=== PATIENT | female | born 1995 | race Caucasian/White ===

== ENCOUNTER → 2017-06-20 14:14 | Outpatient (CLI) | payer OTHER, SELFPAY ==
[2017-06-20 15:47] LABS: Hematocrit 27.6 % (37-47); Hemoglobin 8.7 g/dl (12.0-15.0); Mean Corp Hgb Conc 31.5 g/gl (32-36); Mean Corpuscular Hgb 28.8 pg (27.0-32.0); Mean Corpuscular Volume 91.4 fL (81-99); Mean Platelet Vol. 8.8 fl (6.2-12.0); Platelet Count 305 K/mm3 (150-450); RBC Distribution Width CV 13.6 % (11.6-14.6); RBC Distribution Width SD 44.9 fl (35.1-43.9); Red Blood Count 3.02 M/mm3 (4.2-5.4); White Blood Count 11.2 K/mm3 (4.4-11.0)
[2017-06-20 15:51] LABS: Scan Indicated on CBC? Y/N NO
[2017-06-20 15:52] LABS: Glucose Challenge Gest 1H 50g 127 mg/dL (70-140)
[2017-06-21 11:46] LABS: Ferritin 6 ng/mL (8-252); Iron 32 ug/dL (50-170); Iron Binding Capacity,Total 699 ug/dL (250-450); PERCENT IRON SATURATION 4.6 % (15.0-55.0)
== END ==
PROVIDERS: Visit Provider Obstetrics & Gynecology
DX: Z34.83 Encounter for supervision of other normal pregnancy, third trimester (principal); O99.013 Anemia complicating pregnancy, third trimester; D64.9 Anemia, unspecified; Z3A.00 Weeks of gestation of pregnancy not specified
CPT/HCPCS: 36415; 82728; 82950; 83540; 83550; 85027

== ENCOUNTER 2017-07-14 17:55 | Outpatient (CLI) | payer OTHER, SELFPAY ==
[2017-07-14 18:25] VITALS: BMI 28.3
--- NOTE | 2017-07-20 09:39 | OB.TRI.NOTE ---
History of Present Illness Date of Service: 07/14/17 Was patient seen by the physician?: Yes Reason For Visit: NON-STRESS TEST Final DEANDRE: 09/07/17 Final DEANDRE Source: US <20 weeks Gestational age: 32 Weeks and 6 Days History of Present Illness: 22yo with twin gestation for scheduled NST. Home Medications Medication Instructions Recorded Ferrous Sulfate [Iron] 325 mg PO BID 07/14/17 Prenatabs FA 1 tab PO DAILY 07/14/17 Allergies No Known Allergies Allergy (Verified 07/14/17 18:27) Physical Exam Abdomen: - - US performed to confirm separate FHRs given similarities in tracing NST - FHR Rate Baby A Baseline: 135 Variability:: Moderate Accelerations:: 15 x 15 Decelerations:: None NST Reactive:: Yes FHR Category:: Category I Uterine Activity:: 2/10 min - FHR Rate Baby B Baseline: 135 Variability:: Moderate Accelerations:: 15 x 15 Decelerations:: None NST Reactive:: Yes FHR Category:: Category I Uterine Activity:: 2/10 min Impression/Plan Reactive NST with Cat I FHR Supervision of dichorionic diamnionic twin gestation -d/c home
== END 2017-07-14 19:15 | disposition home or self-care (01) ==
LOC: WPOUT 18:08 → WP 18:13
PROVIDERS: Visit Provider Obstetrics & Gynecology
DX: O30.043 Twin pregnancy, dichorionic/diamniotic, third trimester (principal); Z3A.32 32 weeks gestation of pregnancy
CPT/HCPCS: 59025

== ENCOUNTER 2017-07-18 15:45 | Outpatient (CLI) | payer OTHER, SELFPAY ==
[2017-07-18 16:08] VITALS: BMI 28.9
--- NOTE | 2017-07-19 20:19 | OB.TRI.NOTE ---
History of Present Illness Date of Service: 07/18/17 Was patient seen by the physician?: Yes Reason For Visit: NST Date of Service: 07/18/17 Final DEANDRE: 09/07/17 Gestational age: 32 Weeks and 5 Days Home Medications Medication Instructions Recorded Ferrous Sulfate [Iron] 325 mg PO BID 07/14/17 Prenatabs FA 1 tab PO DAILY 07/14/17 Allergies No Known Allergies Allergy (Verified 07/14/17 18:27) - Pertinent Past Medical History Pertinent Past Medical History: 22 yo female at 32 5/6 wk with twin IUP Concordant growth, both male and with normal AFIs. Both babies approx 5# to 5# 3 oz . Seen in ofc and sent over for twin NST Physical Exam General: Alert, Oriented x3, Cooperative, No apparent distress NST - FHR Rate Baby A Baseline: 130-140s with accels to 150s Unable to trace both babies at same time Variability:: Moderate Accelerations:: 15 x 15 Decelerations:: None NST Reactive:: Yes, Appropriate for gestational age Uterine Activity:: No UCs noted. Impression/Plan 32 5/6 wk twin IUP for NST Concordant growth and KIET wnl on both. Sono just done in office earlier in day Monitored for over 1 hr and unable to trace both babies at same time, even with holding monitors. Home. RTO as planned NST q 3-4 days.
== END 2017-07-18 17:05 | disposition home or self-care (01) ==
LOC: WPOUT 15:51 → WP 15:51
PROVIDERS: Visit Provider Obstetrics & Gynecology
DX: Z34.83 Encounter for supervision of other normal pregnancy, third trimester (principal); Z3A.32 32 weeks gestation of pregnancy
CPT/HCPCS: 59025; 99218; G0378

== ENCOUNTER 2017-07-22 15:55 | Outpatient (CLI) | payer OTHER, SELFPAY ==
[2017-07-22 16:11] VITALS: BMI 29.3
--- NOTE | 2017-07-23 13:19 | OB.TRI.NOTE ---
History of Present Illness Date of Service: 07/22/17 Was patient seen by the physician?: No Reason For Visit: NST Date of Service: 07/22/17 Final DEANDRE: 09/07/17 Gestational age: 33 Weeks and 3 Days History of Present Illness: 22 yo female with twin IUP at 33 wk for twin NST. No concerns voiced. Home Medications Medication Instructions Recorded Ferrous Sulfate [Iron] 325 mg PO BID 07/14/17 Prenatabs FA 1 tab PO DAILY 07/14/17 Allergies No Known Allergies Allergy (Verified 07/22/17 16:11) NST - FHR Rate Baby A Baseline: 130-140 with avg variability. Accels to 160-160 Variability:: Moderate Accelerations:: 15 x 15 Decelerations:: None NST Reactive:: Yes, Appropriate for gestational age FHR Category:: Category I Uterine Activity:: NO regular UCs noted - FHR Rate Baby B Baseline: 130-140s accels to 170s Variability:: Moderate Accelerations:: 15 x 15 Decelerations:: None NST Reactive:: Yes, Appropriate for gestational age FHR Category:: Category I Impression/Plan Twin IUP 33 + wk Reactive NST Home. RTO as scheduled for ofc visit. NST planned twice weekly.
== END 2017-07-22 16:55 | disposition home or self-care (01) ==
LOC: WPOUT 16:04 → WP 16:05
PROVIDERS: Family Provider Physician Assistant; PCP Physician Assistant; Visit Provider Obstetrics & Gynecology
DX: O30.003 Twin pregnancy, unspecified number of placenta and unspecified number of amniotic sacs, third trimester (principal); Z3A.33 33 weeks gestation of pregnancy
CPT/HCPCS: 59025; 59050; 99218; G0378

== ENCOUNTER 2017-07-25 17:55 | Outpatient (CLI) | payer OTHER, SELFPAY ==
[2017-07-25 18:10] VITALS: BMI 29.3
--- NOTE | 2017-07-28 09:23 | OB.TRI.NOTE ---
History of Present Illness Date of Service: 07/25/17 Was patient seen by the physician?: No Reason For Visit: NON STRESS Date of Service: 07/25/17 Final DEANDRE: 09/07/17 Final DEANDRE Source: US <20 weeks Gestational age: 33 Weeks and 6 Days History of Present Illness: 33+ week when twin intrauterine presents for routine nonstress test. care otherwise unremarkable except for iron deficiency anemia treated with iron sulfate. Home Medications Medication Instructions Recorded Ferrous Sulfate [Iron] 325 mg PO BID 07/14/17 Prenatabs FA 1 tab PO DAILY 07/14/17 Allergies No Known Allergies Allergy (Verified 07/25/17 18:10) NST - FHR Rate Baby A NST Reactive:: Yes - FHR Rate Baby B NST Reactive:: Yes Impression/Plan 33+ week twin intrauterine with reactive nonstress test ?2. Transient contractions noted on monitor which are unchanging per the patient. Continuing twice weekly nonstress test. Follow-up in the office per routine.
== END 2017-07-25 18:55 | disposition home health service (06) ==
LOC: WPOUT 17:58 → WP 07-26 15:05
PROVIDERS: Family Provider Physician Assistant; PCP Physician Assistant; Visit Provider Obstetrics & Gynecology
DX: O30.003 Twin pregnancy, unspecified number of placenta and unspecified number of amniotic sacs, third trimester (principal); O60.03 Preterm labor without delivery, third trimester; O99.013 Anemia complicating pregnancy, third trimester; D50.9 Iron deficiency anemia, unspecified; Z3A.33 33 weeks gestation of pregnancy
CPT/HCPCS: 59025

== ENCOUNTER 2017-07-29 16:32 | Outpatient (CLI) | payer OTHER, SELFPAY ==
[2017-07-29 17:04] VITALS: BMI 29.4
--- NOTE | 2017-07-30 10:53 | OB.TRI.NOTE ---
History of Present Illness Date of Service: 07/29/17 Was patient seen by the physician?: No Reason For Visit: NST Date of Service: 07/29/17 Final DEANDRE: 09/07/17 Final DEANDRE Source: US <20 weeks Gestational age: 34 Weeks and 2 Days History of Present Illness: 34+ week twin intrauterine for routine nonstress test. Home Medications Medication Instructions Recorded Ferrous Sulfate [Iron] 325 mg PO BID 07/14/17 Prenatabs FA 1 tab PO DAILY 07/14/17 Allergies No Known Allergies Allergy (Verified 07/25/17 18:10) NST - FHR Rate Baby A NST Reactive:: Yes FHR Category:: Category I - FHR Rate Baby B NST Reactive:: Yes FHR Category:: Category I Impression/Plan 34+ week intrauterine twin for routine nonstress test. Reactive ?2. Some uterine irritability noted on monitor but no change in mild uterine contractions which have been noted by the patient for several weeks. Continue routine follow-up and nonstress testing.
== END 2017-07-29 18:00 | disposition home or self-care (01) ==
LOC: WPOUT 16:33 → WP 16:34
PROVIDERS: Family Provider Physician Assistant; PCP Physician Assistant; Visit Provider Obstetrics & Gynecology
DX: O30.003 Twin pregnancy, unspecified number of placenta and unspecified number of amniotic sacs, third trimester (principal); Z3A.34 34 weeks gestation of pregnancy

== ENCOUNTER 2017-08-02 16:05 | Outpatient (CLI) | payer OTHER, SELFPAY ==
[2017-08-02 16:58] VITALS: BMI 29.5
--- NOTE | 2017-08-08 18:39 | OB.TRI.NOTE ---
History of Present Illness Date of Service: 08/03/17 Reason For Visit: NST Date of Service: 08/03/17 Final DEANDRE: 09/07/17 Gestational age: 35 Weeks Home Medications Medication Instructions Recorded Ferrous Sulfate [Iron] 325 mg PO BID 07/14/17 Prenatabs FA 1 tab PO DAILY 07/14/17 Allergies No Known Allergies Allergy (Verified 07/25/17 18:10) NST - FHR Rate Baby A Baseline: 130-140 with accels to 160s Variability:: Moderate Accelerations:: 15 x 15 Decelerations:: None, Variable NST Reactive:: Yes, Appropriate for gestational age FHR Category:: Category I Uterine Activity:: Irreg UC and some irritability noted. - FHR Rate Baby B Baseline: 120-130s with accels to 150s Variability:: Moderate Accelerations:: 15 x 15 Decelerations:: Variable NST Reactive:: Yes, Appropriate for gestational age FHR Category:: Category I Impression/Plan Twin IUP at reactive NST both irregular UCs, irritability variable decelerations: ofc sono with normal AFIs x two earlier in day. Continue NST twice weekly RTO for next ofc visit as planned.
== END 2017-08-02 17:40 | disposition home or self-care (01) ==
LOC: WPOUT 16:53 → WP 16:53
PROVIDERS: Family Provider Physician Assistant; PCP Physician Assistant; Visit Provider Obstetrics & Gynecology
DX: O30.003 Twin pregnancy, unspecified number of placenta and unspecified number of amniotic sacs, third trimester (principal); O76 Abnormality in fetal heart rate and rhythm complicating labor and delivery; Z3A.35 35 weeks gestation of pregnancy
CPT/HCPCS: 59025; 59050; 99218; G0378

== ENCOUNTER 2017-08-05 16:05 | Outpatient (CLI) | payer OTHER, SELFPAY ==
[2017-08-05 16:18] VITALS: BMI 29.9
--- NOTE | 2017-08-05 16:58 | OB.TRI.NOTE ---
History of Present Illness Date of Service: 08/05/17 Reason For Visit: NST Date of Service: 08/05/17 Final DEANDRE: 09/07/17 Final DEANDRE Source: US <20 weeks Gestational age: 35 Weeks and 2 Days History of Present Illness: 22yo G1 @ 35 2/7wga with dichorionic diamnionic twin gestation for scheduled NST. Home Medications Medication Instructions Recorded Ferrous Sulfate [Iron] 325 mg PO BID 07/14/17 Prenatabs FA 1 tab PO DAILY 07/14/17 Allergies No Known Allergies Allergy (Verified 07/25/17 18:10) Physical Exam Vitals: AVSS NST - FHR Rate Baby A Baseline: 130 Variability:: Moderate Accelerations:: 15 x 15 Decelerations:: None NST Reactive:: Yes FHR Category:: Category I Uterine Activity:: 0-1/10 min - FHR Rate Baby B Baseline: 135 Variability:: Moderate Accelerations:: None Decelerations:: None NST Reactive:: Yes FHR Category:: Category I Uterine Activity:: 0-1/10
== END 2017-08-05 16:55 | disposition home or self-care (01) ==
LOC: WPOUT 16:07 → WP 16:07
PROVIDERS: Family Provider Physician Assistant; PCP Physician Assistant; Visit Provider Obstetrics & Gynecology
DX: O30.043 Twin pregnancy, dichorionic/diamniotic, third trimester (principal); Z3A.35 35 weeks gestation of pregnancy
CPT/HCPCS: 59025; 59050; 99218; G0378

== ENCOUNTER 2017-08-08 16:05 | Outpatient (CLI) | payer OTHER, SELFPAY ==
[2017-08-08 16:18] VITALS: BMI 30.1
--- NOTE | 2017-08-09 07:19 | OB.TRI.NOTE ---
History of Present Illness Date of Service: 08/08/17 Reason For Visit: NST Date of Service: 08/08/17 Final DEANDRE: 09/07/17 Final DEANDRE Source: US <20 weeks Gestational age: 35 Weeks and 5 Days History of Present Illness: 22 yo female at 35 5/7 wk for twin NST. Twins concordant, both vertex. Denies UCs. Home Medications Medication Instructions Recorded Ferrous Sulfate [Iron] 325 mg PO BID 07/14/17 Prenatabs FA 1 tab PO DAILY 07/14/17 Allergies No Known Allergies Allergy (Verified 07/25/17 18:10) NST - FHR Rate Baby A Baseline: 120-130s avg accels to 150-160 Variability:: Moderate Accelerations:: 15 x 15 Decelerations:: Variable - KIET in ofc sono WNL NST Reactive:: Yes, Appropriate for gestational age FHR Category:: Category I Uterine Activity:: Irreg UCs with some intervening irritability. - FHR Rate Baby B Baseline: 130-140 accels to 150 Variability:: Moderate Accelerations:: 15 x 15 Decelerations:: Variable - normal KIET on ofc sono NST Reactive:: Yes, Appropriate for gestational age FHR Category:: Category I Impression/Plan 35 5/7 wk twin IUP. Vtx -Vtx. Planning primary C/S at 38 wks Twin NST reactive. GBS done in ofc today. AFIs WNL both twins. continue twice weekly NST until delivery Return if inc s/sx of labor.
== END 2017-08-08 17:00 | disposition home or self-care (01) ==
LOC: WPOUT 16:12 → WP 16:13
PROVIDERS: Family Provider Physician Assistant; PCP Physician Assistant; Visit Provider Obstetrics & Gynecology
DX: O30.003 Twin pregnancy, unspecified number of placenta and unspecified number of amniotic sacs, third trimester (principal); O76 Abnormality in fetal heart rate and rhythm complicating labor and delivery; Z3A.35 35 weeks gestation of pregnancy
CPT/HCPCS: 59025; 59050; 99218; G0378

== ENCOUNTER → 2017-08-08 16:35 | Outpatient (CLI) | payer OTHER, SELFPAY ==
[2017-08-08 18:13] LABS: Group B Strep DNA By PCR Negative (Negative); Internal Control PASS; Probe Check PASS; Specimen Processing Control PASS
== END ==
PROVIDERS: Visit Provider Obstetrics & Gynecology
DX: Z36.85 Encounter for antenatal screening for Streptococcus B (principal)
CPT/HCPCS: 87081; 87653

== ENCOUNTER 2017-08-11 16:55 | Outpatient (CLI) | payer OTHER, SELFPAY ==
[2017-08-11 17:06] VITALS: BMI 30.3
--- NOTE | 2017-08-11 17:26 | OB.TRI.NOTE ---
History of Present Illness Date of Service: 08/11/17 Was patient seen by the physician?: No Reason For Visit: NST Date of Service: 08/11/17 Final DEANDRE: 09/07/17 Final DEANDRE Source: US <20 weeks Gestational age: 36 Weeks and 1 Days History of Present Illness: 22yo G1 @ 36 1/7wga with dichorionic diamnionic twins presents for scheduled NST. Home Medications Medication Instructions Recorded Ferrous Sulfate [Iron] 325 mg PO BID 07/14/17 Prenatabs FA 1 tab PO DAILY 07/14/17 Allergies No Known Allergies Allergy (Verified 07/25/17 18:10) Physical Exam Vitals: 111/66 BP NST - FHR Rate Baby A Baseline: 135 Variability:: Moderate Accelerations:: 15 x 15 Decelerations:: None NST Reactive:: Yes FHR Category:: Category I Uterine Activity:: irritability - FHR Rate Baby B Baseline: 135 Variability:: Moderate Accelerations:: 15 x 15 Decelerations:: None NST Reactive:: Yes FHR Category:: Category I Uterine Activity:: irritability Impression/Plan Reactive NST x 2 Supervision of dichorionic diamnionic twin gestation, third trimester Plan for d/c home
== END 2017-08-11 17:35 | disposition home or self-care (01) ==
LOC: WPOUT 17:04 → WP 17:05
PROVIDERS: Family Provider Physician Assistant; PCP Physician Assistant; Visit Provider Obstetrics & Gynecology
DX: O30.043 Twin pregnancy, dichorionic/diamniotic, third trimester (principal); Z3A.36 36 weeks gestation of pregnancy
CPT/HCPCS: 59025; 59050; 99218; G0378

== ENCOUNTER 2017-08-13 15:40 | Outpatient (CLI) | payer OTHER, SELFPAY ==
[2017-08-13 16:08] LABS: Mucous, Urine 0 SEEN /hpf (<or=2+)
[2017-08-13 16:13] LABS: Color, Urine Yellow (Yellow); Glucose, Dipstick Normal (Normal); Ketone-Dipstick Negative (Negative); Leukocyte Esterase-Dipstick 100 /ul (Negative); Nitrite-Dipstick Negative (Negative); Occult Blood-Urine 10 /ul (Negative); Protein-Dipstick 30 mg/dl (Negative); Specific Gravity, Urine 1.015 (1.002-1.030); Urine Bilirubin Dipstick Negative (Negative); Urine Clarity Sl. Cloudy (Clear); Urine Urobilinogen Normal (Normal)
[2017-08-13 16:17] VITALS: BMI 30.7
[2017-08-13 16:19] LABS: Red Blood Cells-Urine 0 SEEN /hpf (0-5); Squamous Epithelial Cells - UA 5-10 SEEN /hpf (5-10); White Blood Cells 0-5 SEEN /hpf (0-5)
[2017-08-13 16:20] LABS: Bacteria 1+ /hpf (None Seen)
[2017-08-13 16:30] LABS: ROM Internal Control Test YES-OK TO RESULT pt. (Internal QC); ROM Patient Test Negative (Negative)
--- NOTE | 2017-08-13 16:39 | OB.TRI.NOTE ---
History of Present Illness Date of Service: 08/13/17 Was patient seen by the physician?: Yes Reason For Visit: R/O LABOR Date of Service: 08/13/17 Final DEANDRE: 09/07/17 Final DEANDRE Source: US <20 weeks Gestational age: 36 Weeks and 3 Days History of Present Illness: Feeling contractions. Twin . No signs of SROM. Home Medications Medication Instructions Recorded Ferrous Sulfate [Iron] 325 mg PO BID 07/14/17 Prenatabs FA 1 tab PO DAILY 07/14/17 Allergies No Known Allergies Allergy (Verified 07/25/17 18:10) Physical Exam General: Alert, Oriented x3, Cooperative, No apparent distress Cardiovascular: Regular rate, Regular Rhythm Lungs: Clear to auscultation, Normal air movement Abdomen: Soft, Non Tender, Non-Distended, Gravid, Appropriate for Gestational Age Extremities:: No edema Estimated gestational size: Large for gestational age Presentation: Cephalic Cervix Dilation (cm): 1 Station: -2 Effacement (%): 75 NST - FHR Rate Baby A Baseline: 130 Variability:: Moderate Accelerations:: 15 x 15 Decelerations:: None NST Reactive:: Yes, Appropriate for gestational age FHR Category:: Category I Uterine Activity:: irregular - FHR Rate Baby B Baseline: 130s Variability:: Moderate Accelerations:: 15 x 15 Decelerations:: None, Early NST Reactive:: Yes, Appropriate for gestational age FHR Category:: Category I Uterine Activity:: irregular Impression/Plan Twin gestation at 36w3d ega. ROM+ testing negative. No change in cervical exam over 1 1/2 hours. Contractions not painful. Not in active labor. Discharged home with instructions to return if contractions strengthen or has SROM. Has NST scheduled for 2 days from now.
== END 2017-08-13 17:20 | disposition home or self-care (01) ==
LOC: WPOUT 15:55 → WP 15:56
PROVIDERS: Family Provider Physician Assistant; PCP Physician Assistant; Visit Provider Obstetrics & Gynecology
DX: O30.003 Twin pregnancy, unspecified number of placenta and unspecified number of amniotic sacs, third trimester (principal); O62.9 Abnormality of forces of labor, unspecified; Z3A.36 36 weeks gestation of pregnancy
CPT/HCPCS: 59050; 81001; 84112; 99218; G0378

== ENCOUNTER 2017-08-15 16:00 | Outpatient (CLI) | payer OTHER, SELFPAY ==
[2017-08-15 16:05] VITALS: BMI 31.1
--- NOTE | 2017-08-16 08:29 | OB.TRI.NOTE ---
History of Present Illness Date of Service: 08/15/17 Was patient seen by the physician?: No Reason For Visit: NST Date of Service: 08/15/17 Final DEANDRE: 09/07/17 Gestational age: 36 Weeks and 6 Days Home Medications Medication Instructions Recorded Ferrous Sulfate [Iron] 325 mg PO BID 07/14/17 Prenatabs FA 1 tab PO DAILY 07/14/17 Allergies No Known Allergies Allergy (Verified 08/15/17 16:07) - Pertinent Past Medical History Pertinent Past Medical History: 22 yo female at 36 6/7 wk twin IUP for scheduled twice weekly NST. NST - FHR Rate Baby A Baseline: 130-140s avg variability. accels to 160s Variability:: Moderate Accelerations:: 15 x 15 Decelerations:: None NST Reactive:: Yes, Appropriate for gestational age FHR Category:: Category I Uterine Activity:: No UCs noted - FHR Rate Baby B Baseline: 120-130s avg variability accels to 150s Variability:: Moderate Accelerations:: 15 x 15 Decelerations:: Variable NST Reactive:: Yes, Appropriate for gestational age FHR Category:: Category I Impression/Plan Twin IUP 36 6/7 wk EGA Reactive twin NST Home. Continue twice weekly NST Plans primary C/S at 38 wks. Return to hospital if inc in s/sx of labor.
== END 2017-08-15 16:38 | disposition home or self-care (01) ==
LOC: WPOUT 16:05 → WP 16:05
PROVIDERS: Family Provider Physician Assistant; PCP Physician Assistant; Visit Provider Obstetrics & Gynecology
DX: O30.003 Twin pregnancy, unspecified number of placenta and unspecified number of amniotic sacs, third trimester (principal); O76 Abnormality in fetal heart rate and rhythm complicating labor and delivery; Z3A.36 36 weeks gestation of pregnancy
CPT/HCPCS: 59025; 99218; G0378

== ENCOUNTER 2017-08-18 17:00 | Outpatient (CLI) | payer OTHER, SELFPAY ==
[2017-08-18 17:30] VITALS: BMI 30.9
--- NOTE | 2017-08-18 21:54 | OB.TRI.NOTE ---
History of Present Illness Reason For Visit: NST Date of Service: 08/18/17 Final DEANDRE: 09/07/17 Final DEANDRE Source: US <20 weeks Gestational age: 37 Weeks and 1 Days History of Present Illness: 37+ week intrauterine presents for routine nonstress test for twins. care remarkable for anemia and patient is on iron for this. Home Medications Medication Instructions Recorded Ferrous Sulfate [Iron] 325 mg PO BID 07/14/17 Prenatabs FA 1 tab PO DAILY 07/14/17 Allergies No Known Allergies Allergy (Verified 08/15/17 16:07) NST - FHR Rate Baby A NST Reactive:: Yes - FHR Rate Baby B NST Reactive:: Yes Impression/Plan 37+ week intrauterine twin with reactive nonstress test ?2. Continuing routine care.
== END 2017-08-18 17:40 | disposition home or self-care (01) ==
LOC: WPOUT 17:21 → WP 17:21
PROVIDERS: Family Provider Physician Assistant; PCP Physician Assistant; Visit Provider Obstetrics & Gynecology
DX: O30.003 Twin pregnancy, unspecified number of placenta and unspecified number of amniotic sacs, third trimester (principal); O99.013 Anemia complicating pregnancy, third trimester; D64.9 Anemia, unspecified; Z3A.37 37 weeks gestation of pregnancy
CPT/HCPCS: 59025; 59050; 99218; G0378

== ENCOUNTER 2017-08-23 15:00 | Outpatient (CLI) | payer OTHER, SELFPAY ==
[2017-08-23 15:17] VITALS: BMI 31.5
--- NOTE | 2017-08-25 07:55 | OB.TRI.NOTE ---
History of Present Illness Date of Service: 08/23/17 Was patient seen by the physician?: No Reason For Visit: NST Date of Service: 08/23/17 Final DEANDRE: 09/07/17 Final DEANDRE Source: US <20 weeks Gestational age: 37 weeks 6 Days Home Medications Medication Instructions Recorded Ferrous Sulfate [Iron] 325 mg PO BID 07/14/17 Prenatabs FA 1 tab PO DAILY 07/14/17 Docusate Sodium [Colace] 100 mg PO BID PRN PRN #60 cap 08/24/17 Oxycodone [Oxyir] 5 mg PO Q4H PRN PRN 7 Days #20 tab 08/24/17 Allergies No Known Allergies Allergy (Verified 08/23/17 15:14) NST - FHR Rate Baby A Baseline: 130-140 avg accels to 165 Variability:: Moderate Accelerations:: 15 x 15 Decelerations:: Variable - to 110 with quick return NST Reactive:: Yes, Appropriate for gestational age FHR Category:: Category I Uterine Activity:: no regular UCs noted - FHR Rate Baby B Baseline: 130-140s with prolonged accels 160s Variability:: Moderate Accelerations:: 15 x 15 Decelerations:: Variable - to 110 (intermittent tracing with return to baseline within 20 sec) NST Reactive:: Yes FHR Category:: Category I Impression/Plan 37 6/7 wk twin IUP Plans primary C section tomorrow Reactive twin NST Concordant growth
== END 2017-08-23 15:45 | disposition home or self-care (01) ==
LOC: WPOUT 15:12 → WP 15:13
PROVIDERS: Family Provider Physician Assistant; PCP Physician Assistant; Visit Provider Obstetrics & Gynecology
DX: O30.003 Twin pregnancy, unspecified number of placenta and unspecified number of amniotic sacs, third trimester (principal); O76 Abnormality in fetal heart rate and rhythm complicating labor and delivery; Z3A.37 37 weeks gestation of pregnancy
CPT/HCPCS: 59025; 99218; G0378

== ENCOUNTER 2017-08-24 05:35 | Inpatient (IN) | payer OTHER, SELFPAY ==
[2017-08-23 15:15] VITALS: BMI 31.6
[2017-08-23 16:01] LABS: Absolute Lymphocyte Count 1.86 X10^3/ul (0.83-4.51); Absolute Neutrophil Count 7.6 X10^3/uL (2.0-7.7); Basophil# 0.01 X10^3/uL; Basophil% 0.1 % (0-1); Eosinophil# 0.06 X10^3/uL; Eosinophils% 0.6 % (0-5); Hemoglobin 11.5 g/dl (12.0-15.0); Lymphocyte # 1.86 X10^3/ul (4.0); Lymphocyte % 17.7 % (19-41); Mean Corp Hgb Conc 32.9 g/gl (32-36); Mean Corpuscular Volume 94.3 fL (81-99); Mean Platelet Vol. 9.9 fl (6.2-12.0); Monocyte# 0.89 X10^3/uL; Monocyte% 8.5 % (0-10); Neutrophil # 7.57 X10^3/uL (2.7-7.7); Neutrophil % 72.2 % (47-70); Platelet Count 247 K/mm3 (150-450); RBC Distribution Width CV 18.3 % (11.6-14.6); RBC Distribution Width SD 60.1 fl (35.1-43.9); Red Blood Count 3.71 M/mm3 (4.2-5.4); White Blood Count 10.5 K/mm3 (4.4-11.0)
[2017-08-23 16:09] LABS: POSITIVE COUNT NO; POSITIVE DIFFERENTIAL NO; POSITIVE MORPHOLOGY NO
[2017-08-24] VITALS (23 sets, daily range): BP systolic 108–131; BP diastolic 52–84; PULSE 76–101; RESP 15–18; TEMP 36.5–37.3; O2SAT 94–98
[2017-08-24] MEDS: Lactated Ringers 1,000 ML 999 ML IV (05:50)
[2017-08-24] MEDS: Lactated Ringers 1,000 ML 150 ML IV (06:56)
[2017-08-24] MEDS: Sodium Citrate/Citric Acid 30 ML UDC PO (06:57)
[2017-08-24] MEDS: Cefazolin 2 GM in 0.9% Normal Saline 100 ML IV (06:57)
[2017-08-24] MEDS: Oxytocin 30 units/NS 500 ml 30 UNITS/500 ML IV.SOLN 167 UNITS IV (07:43)
--- NOTE | 2017-08-24 08:00 | PLAC_PTH ---
PATIENT: KANDI DIAZ LOC: [facility] U#:[id number] AGE/SX: 22/F ROOM: WP005 RE08/24/[address]: Dr. Elham Peña MD : 1995 BED: 1 DIS: 08/26/2017 SPEC #: [id number] RECD: 08/24/17 10:05 STATUS: ANANTH YANET #: [id number] FABIAN: 08/24/17 08:[address]: Elham Peña DEPT: SURGICAL PATHOLOGY RECD BY: Stef Buckley ENTERED: 08/24/17 10:23 SP TYPE: PLACENTA OTHR DR: JENNIFER Goldsmith Tissues: Placenta, NOS Procedures: Surgery Specimen Level V HEADER OPERATION: Primary section PRE-OP DIAGNOSIS: Twin IUP TISSUE SUBMITTED: Placenta MICROSCOPIC DIAGNOSIS Twin placenta: Dichorionic and diamniotic twin placenta. Placenta A: Placental disc - third trimester placenta (487 gm). - Focal area of intraparenchymal hemorrhagic x3 (each measuring 0.5 cm in greatest dimension). Membranes - no pathologic diagnosis. Umbilical cord - three blood vessels and no pathologic diagnosis. Placenta B: Placental disc - third trimester placenta (403 gm). - Focal area of intraparenchymal hemorrhagic (1 cm in greatest dimension). Membranes - no pathologic diagnosis. Umbilical cord - three blood vessels and no pathologic diagnosis. SJ:shabnam 08/26/17 MICROSCOPIC DESCRIPTION Slides are reviewed. GROSS DESCRIPTION SPECIMEN: TWIN PLACENTA Received is one container labeled with the patient's name and not further designated. Received is a twin placenta consisting of two placental discs, two membranous sacs and two umbilical cords. The placentas are not assigned as A or B. One of the placentas shows a clamp and it is arbitrarily assigned as placenta A. Dividing membranous septum is present on placenta A close to the insertion of umbilical cord. / CLINICAL INFORMATION: A. Weight: A ? 3.275 kg; B ? 3.257 kg B. Gestational Age: 38 weeks C. Sex: A ? Male, B - Male PLACENTA A: (with clamp) PLACENTAL WEIGHT (POST FIXATION): 487 gm PLACENTAL DIMENSIONS: 16 x 18 x 3 cm PLACENTAL SHAPE: Usual ovoid PLACENTAL WEIGHT FOR GESTATIONAL AGE: Within 10-99th percentile MEMBRANES - Present A. Insertion: Marginal B. Site of rupture from edge: The membranes are fragmented and distance of rupture cannot be assessed due to fragmented nature of the membranes. C. Color of membrane: Thorpe-murphy D. Abnormalities: None UMBILICAL CORD - Present A. Color: Thorpe-murphy B. Insertion: Central C. Length: 41 cm D. Diameter: 1.2 cm E. Number of vessels: Three F. Abnormalities: None PLACENTAL DISC - Present A. Color of surface: Thorpe-murphy B. surface abnormalities: None C. Maternal cotyledons: Intact with minimal tears D. Attached retro placental clot: No clot E. Cut surface: Dark red and spongy F. Lesions: Sections reveal three thorpe, indurated lesions each measuring 0.5 cm in greatest dimension. One of the lesions is plaque-like on the maternal surface. G. Separate clot: Absent PLACENTA B: PLACENTAL WEIGHT (POST FIXATION): 403 gm PLACENTAL DIMENSIONS: 17 x 18 x 2.5 cm PLACENTAL SHAPE: Usual ovoid PLACENTAL WEIGHT FOR GESTATIONAL AGE: Within 10-99th percentile MEMBRANES - Present A. Insertion: Marginal B. Site of rupture from the membranes of placenta B appears to be fragmented. The distance of rupture cannot be assessed. C. Color of membrane: Thorpe-murphy D. Abnormalities: None UMBILICAL CORD - Present A. Color: Thorpe-murphy B. Insertion: Paracentral C. Length: 37 cm D. Diameter: 1.4 cm E. Number of vessels: Three F. Abnormalities: None PLACENTAL DISC - Present A. Color of surface: Thorpe-murphy B. surface abnormalities: None C. Maternal cotyledons: Intact with minimal tears D. Attached retro placental clot: No clot E. Cut surface: Dark red and spongy F. Lesions: Sections reveal a thorpe, indurated area measuring 1 cm in greatest dimension. G. Separate clot: Absent SECTIONS SUBMITTED: 11 cassettes 1 - Dividing membranous septum, 2-6 - placenta A (2 - membrane roll, 3 - umbilical cord, end inked black, 4-6 - body of the placenta including maternal and surfaces, cassette 4 contains one lesion, cassette 5 contains two lesions including plaque-like lesion on maternal surface), 7-11 - placenta B (7 - membrane roll, 8 - umbilical cord, end inked black, 9-11 - body of the placenta including maternal and surfaces, block 10 contains the lesion). SJ:shabnam 08/25/17 TC:5 CPT: 19048 x2
--- NOTE | 2017-08-24 08:25 | OP.PCM_ITS ---
Operative Report Date of Procedure: 08/24/17 Surgeon: Elham Peña MD, FACOG Armature Straightener: Johnny Kohler MD, FACOG Anesthesia: Bigg Mccullough MD Anesthesia: Spinal with Duramorph Pre-op Diagnosis: - -Primary Section Post-Op Diagnosis: - -Primary Section Procedure: Primary Low Transverse Cervical Caesarean Section Findings: A-Viable male infant with Apgars of 9/9 in the put anterior presentation with clear amniotic fluid and normal three-vessel placenta and cord around the neck ?1 loose; B- viable male with Apgars of 9/9 and an occiput anterior presentation with clear amniotic fluid and normal three-vessel placenta. Indication: This is a 22-year-old who presents for a primary at 38 weeks gestation. care has otherwise been remarkable for twin gestation with dichorionic diamniotic placenta. The patient has been counseled regarding the risk and indications of this procedure including the possibility of bleeding infection and injury to surrounding structures such as bowel bladder. All questions were answered. Procedure: Patient was taken to the operating room where after spinal anesthesia was placed, the patient was prepped and draped in usual sterile fashion and a Le catheter was placed. The abdomen was entered through a Pfannenstiel incision and peritoneum was entered bluntly. After developing a bladder flap on the lower uterine segment a low transverse incision was made on the uterus and baby A head was easily delivered onto the operative field the nose mouth and oropharynx were bulb suctioned. Subsequently a viable male was born with Apgars of 9/9. The was noted to cry move all extremities vigorously on the operative field. The umbilical cord was doubly clamped and ligated and handed to the nursery personnel who were present for the delivery. Baby B was then easily delivered onto the operative field were nose, mouth, and oropharynx were bulb suctioned. Subsequently a viable male was born with Apgars of 9/9. The was noted to cry move all extremities vigorously on the operative field. Umbilical cord was doubly clamped and ligated and infant handed to nursery personnel who were present for the delivery. Kiwi vacuum suction was used to assist with delivery of baby B due to high station of the head. Placenta was delivered and noted to be 3 vessels and normal. Uterus was exteriorized and remaining placental tissue was removed. The uterus was then closed in 2 layers first with running locked 0 Vicryl suture followed by a second imbricating layer with 0 monocryl suture. 0 Vicryl suture was then used in a horizontal mattress interrupted fashion to affect final hemostasis of the uterine incision line. Normal fallopian tubes and ovaries were visualized and the uterus was returned to the pelvis. Hemostasis was noted and rectus abdominis muscles were reapproximated in the midline with interrupted Number 0 Vicryl suture in a horizontal mattress fashion. Fascia was closed with running Number 1 PDS Strata fix suture. Subcutaneous tissue was irrigated with copious amouts of saline solution and then closed with running 3-0 Vicryl suture. Skin was closed with 4-0 monocryl suture in a running subcuticular fashion. Steri strips and Mepilex were placed across the incision. The patient tolerated the procedure well and was taken to the recovery room in satisfactory condition. Sponge, needle, and instrument counts were all reportedly correct. EBL was 800 cc. Ancef 2 gms IV was given prior to the procedure. Spicemen to Pathology: Placenta Complications: None
--- NOTE | 2017-08-24 08:26 | PCM.DCCSEC ---
Discharge Diet: No Restrictions Discharge Activity: May not drive while taking narcotic pain medications., May Shower, May Take a Tub Bath May resume sexual activity in: 4-6 weeks Lifting Restrictions: 20 pounds Additional Activity Instructions:: Nothing in the vagina for 4-6 weeks. You may return to work/school in 6 weeks. Call your doctor if your incision/area has: Continuous Slow Oozing, Sudden Increased Bleeding, Increased Pain/ Swelling, Increased Redness, Foul Smelling Discharge Call your doctor if you observe: Fever of 101 or Higher, Inability to urinate, Inability to have a bowel movement, Using more than one pad per hour Additional Instructions: If you experience any of the following, contact your healthcare provider. Bleeding that soaks a pad every hour for 2 hours Unrelieved incision or abdominal pain Swelling, redness, discharge or bleeding from your incision or episiotomy site Your incision begins to separate Problems urinating (including inability to urinate or burning while urinating). Visual changes Severe headache Flu-like symptoms Pain or redness in one of both of your breasts Pain, warmth, tenderness or swelling in your legs, especially the calf area Frequent nausea and vomiting Symptoms of depression or anxiety If you experience any of the following, call 911 or go to the nearest Emergency Room. Chest pain Problems breathing Seizure activity Partial or complete paralysis of a body part, slurred speech, weakness or drooping of the face, or a sudden inability to walk or hold your balance Allergies/Adverse Reactions: Allergies No Known Allergies Allergy (Verified 08/23/17 15:14) Medications to take at Discharge Ferrous Sulfate [Iron] 325 mg PO BID 07/14/17 Prenatabs FA 1 tab PO DAILY 07/14/17 Docusate Sodium [Colace] 100 mg PO BID PRN PRN #60 cap 08/24/17 Oxycodone [Oxyir] 5 mg PO Q4H PRN PRN 7 Days #20 tab 08/24/17 Orders to be completed after discharge: Electric breast pump Time Frame: 1 Year, Location: None Selected Follow-Up: Call to make an appointment with your doctor for an incision check in 1-2 weeks. You will also need a 6 week post- follow up appointment. Please Follow Up With: Elham Peña MD - [phone] When: Call to make an appointment for an incision check in 2 weeks. Primary Care Physician: Pricila Blackwood PA [Primary Care Provider] -
--- NOTE | 2017-08-24 08:29 | DCINST_ITS ---
Discharge Diet: No Restrictions Discharge Activity: May not drive while taking narcotic pain medications., May Shower, May Take a Tub Bath May resume sexual activity in: 4-6 weeks Lifting Restrictions: 20 pounds Additional Activity Instructions:: Nothing in the vagina for 4-6 weeks. You may return to work/school in 6 weeks. Call your doctor if your incision/area has: Continuous Slow Oozing, Sudden Increased Bleeding, Increased Pain/ Swelling, Increased Redness, Foul Smelling Discharge Call your doctor if you observe: Fever of 101 or Higher, Inability to urinate, Inability to have a bowel movement, Using more than one pad per hour Additional Instructions: If you experience any of the following, contact your healthcare provider. * Bleeding that soaks a pad every hour for 2 hours * Unrelieved incision or abdominal pain * Swelling, redness, discharge or bleeding from your incision or episiotomy site * Your incision begins to separate * Problems urinating (including inability to urinate or burning while urinating) . * Visual changes * Severe headache * Flu-like symptoms * Pain or redness in one of both of your breasts * Pain, warmth, tenderness or swelling in your legs, especially the calf area * Frequent nausea and vomiting * Symptoms of depression or anxiety If you experience any of the following, call 911 or go to the nearest Emergency Room. * Chest pain * Problems breathing * Seizure activity * Partial or complete paralysis of a body part, slurred speech, weakness or drooping of the face, or a sudden inability to walk or hold your balance Allergies/Adverse Reactions: Allergies No Known Allergies Allergy (Verified 08/23/17 15:14) Medications to take at Discharge Ferrous Sulfate [Iron] 325 mg PO BID 07/14/17 Prenatabs FA 1 tab PO DAILY 07/14/17 Docusate Sodium [Colace] 100 mg PO BID PRN PRN #60 cap 08/24/17 Oxycodone [Oxyir] 5 mg PO Q4H PRN PRN 7 Days #20 tab 08/24/17 Orders to be completed after discharge: Electric breast pump Time Frame: 1 Year, Location: None Selected Follow-Up: Call to make an appointment with your doctor for an incision check in 1-2 weeks. You will also need a 6 week post- follow up appointment. Please Follow Up With: Elham Peña MD - [phone] When: Call to make an appointment for an incision check in 2 weeks. Primary Care Physician: Pricila Blackwood PA [Primary Care Provider] -
[2017-08-24] MEDS: Ketorolac 30 MG/ML Syringe IV ×3 (13:12→23:45)
--- NOTE | 2017-08-24 18:04 | CPS ---
patient will do when done eating
--- NOTE | 2017-08-24 18:08 | NURSING ---
0453 Patient out of bed, up to chair. Tolerated well. Eating dinner.
[2017-08-24] MEDS: Lactated Ringers 1,000 ML 100 ML IV (18:28)
[2017-08-25] VITALS (9 sets, daily range): BP systolic 100–137; BP diastolic 40–81; PULSE 88–109; RESP 16–18; TEMP 37.1–37.4; O2SAT 96–99
[2017-08-25] MEDS: Ketorolac 30 MG/ML Syringe IV ×3 (05:31→18:09)
[2017-08-25] MEDS: Senna/Docusate Sodium 1 Tablet PO (05:31)
[2017-08-25 06:00] LABS: Hematocrit 29.8 % (37-47); Hemoglobin 9.8 g/dl (12.0-15.0); Mean Corp Hgb Conc 32.9 g/gl (32-36); Mean Corpuscular Hgb 31.2 pg (27.0-32.0); Mean Corpuscular Volume 94.9 fL (81-99); Mean Platelet Vol. 9.4 fl (6.2-12.0); Platelet Count 199 K/mm3 (150-450); RBC Distribution Width CV 18.5 % (11.6-14.6); RBC Distribution Width SD 60.5 fl (35.1-43.9); Red Blood Count 3.14 M/mm3 (4.2-5.4); White Blood Count 12.5 K/mm3 (4.4-11.0)
[2017-08-25 06:10] LABS: Scan Indicated on CBC? Y/N NO
--- NOTE | 2017-08-25 07:50 | PCM.PN.OB ---
Subjective: POD#1 Primary C section, Twin IUP Pain control adequate. Bleeding as a period. No concerns voiced. IV to S/L already but shipman still in place. Babies doing well, plans bottle feeding. Objective: Sitting up semirecumbent in bed, holding one baby. - Physical Exam General: Alert, Oriented x3, Cooperative, No apparent distress HEENT: Atraumatic Neck: Supple Abdomen: Soft - Fundus firm minimally tender consistent with postop status, at approx umbilicus Extremities: Edema - SCDs in place. Skin: Incision - Mepilex dressing in place. Dry, intact, no shadow drainage. Neurological: Cranial nerves II-XII grossly intact Psych/Mental Status: Normal Affect Vital Signs Temp Pulse Resp BP Pulse Ox 98.8 F 97 18 110/62 98 08/25/17 03:50 08/25/17 06:53 08/25/17 06:53 08/25/17 05:29 08/25/17 06:53 Oxygen Delivery Method Room Air Weight: 81.1 kg Body Mass Index (BMI) 31.6 Intake and Output for Last 24 Hours 0518 0523/18 08/25/17 23:59 23:59 23:59 Intake Total 3749 / 3749 1331 / 1331 Output Total 4100 / 4100 2400 / 2400 Balance -351 / -351 -1069 / -1069 Laboratory Tests Past 24 Hrs 08/25/17 05:40 WBC 12.5 H RBC 3.14 L Hgb 9.8 L Hct 29.8 L MCV 94.9 MCH 31.2 MCHC 32.9 RDW 18.5 H RDW Differential 60.5 H Plt Count 199 MPV 9.4 Medical Necessity - Tobacco Use Smoking Status: Never smoker Assessment/Plan POD#1 Primary C/S twin IUP at 38 wks Stable postop. Inc diet and activity as tolerated. Begin po meds. Continue toradol q 6 hr. IV to S/L already. D/C shipman for voiding trial. Continue care. Advised may elect dischg by POD2-POD4 Postop, acute blood loss anemia. Stable vitals. Iron bid for 1 mo Continue care.
[2017-08-25] MEDS: Prenatal Vits Tablet 1 TABLET PO (11:37)
[2017-08-25] MEDS: 0.9% Saline Lock 10 ML Syringe IV ×2 (11:38→18:09)
--- NOTE | 2017-08-26 00:46 | NURSING ---
Taking over pt care at this time.
[2017-08-26] MEDS: Ketorolac 30 MG/ML Syringe IV ×2 (00:50→06:06)
[2017-08-26] MEDS: 0.9% Saline Lock 10 ML Syringe IV ×2 (00:56→06:06)
[2017-08-26 01:02] VITALS: BP 106/63; PULSE 99; RESP 18; TEMP 37.2; O2SAT 97
--- NOTE | 2017-08-26 06:55 | PCM.PN.OB ---
Subjective: POD#2 Primary C section, twins Doing well. Bottle feeding. Pain control adequate. Would like to go home today. - Physical Exam General: Alert, Oriented x3, Cooperative, No apparent distress HEENT: Atraumatic Neck: Supple Abdomen: Soft - Fundus firm NT at umbilicus Skin: Incision - Mepilex CDI. Neurological: Cranial nerves II-XII grossly intact Psych/Mental Status: Normal Affect Vital Signs Temp Pulse Resp BP Pulse Ox 98.9 F 99 18 106/63 97 08/26/17 01:02 08/26/17 01:02 08/26/17 01:02 08/26/17 01:02 08/26/17 01:02 Oxygen Delivery Method Room Air Weight: [Today] 3.43 kg Weight: [] 3.685 kg Weight: 81.1 kg Body Mass Index (BMI) 31.6 Intake and Output for Last 24 Hours 08/24/17 08/25/17 08/26/17 23:59 23:59 23:59 Intake Total 3749 / 3749 1331 / 1331 Output Total 4100 / 4100 4400 / 4400 Balance -351 / -351 -3069 / -3069 Medical Necessity - Tobacco Use Smoking Status: Never smoker Assessment/Plan POD#2 Primary C/S twin IUP at 38 wks Stable postop. Encourage ambulation, C and DB. Plans to go home today. RTO in 2 wk for postop check, prn sooner.
--- NOTE | 2017-08-26 07:03 | PCM.DC.SUM ---
Discharge Date and Diagnosis Date of Admission: 08/24/17 - 38 wk twin IUP for primary C section Date of Discharge: 08/26/17 - s/p Primary C section Hospital Course and Treatment Operations: - - Primary C section Summary of Care Provided: The patient is a 22 year old female with twin IUP, Vtx-Vtx, concordant growth presents for elected primary C section. Declined vaginal . Delivred by primary C seciton on 08/25/17 Procedure uncomplicated. Baby weights : 7# 3 oz and 7# 4 oz. EBL 800 cc Uncomplicated postoperative recovery . Requests dischg to home on POD#2. Discharge Diet: No Restrictions Discharge Activity: May not drive while taking narcotic pain medications., May Shower, May Take a Tub Bath May resume sexual activity in: 4-6 weeks Additional Activity Instructions:: Nothing in the vagina for 4-6 weeks. You may return to work/school in 6 weeks. Call your doctor if your incision/area has: Continuous Slow Oozing, Sudden Increased Bleeding, Increased Pain/ Swelling, Increased Redness, Foul Smelling Discharge Call your doctor if you observe: Fever of 101 or Higher, Inability to urinate, Inability to have a bowel movement, Using more than one pad per hour Home Medications: Medications to take at Discharge Ferrous Sulfate [Iron] 325 mg PO BID 07/14/17 Prenatabs FA 1 tab PO DAILY 07/14/17 Docusate Sodium [Colace] 100 mg PO BID PRN PRN #60 cap 08/24/17 Oxycodone [Oxyir] 5 mg PO Q4H PRN PRN 7 Days #20 tab 08/24/17 Following Prescrptions Were Given to Patient: Oxycodone [Oxyir] 5 mg PO Q4H PRN PRN 7 Days #20 tab PRN Reason: Severe Pain (6-10/10) Docusate Sodium [Colace] 100 mg PO BID PRN PRN #60 cap PRN Reason: Constipation Other Amb Orders: Electric breast pump Time Frame: 1 Year, Location: None Selected Primary Care Physician: Pricila Blackwood PA [Primary Care Provider] - Please Follow Up With: Elham Peña MD - [phone] When: Call to make an appointment for an incision check in 2 weeks. Medical Necessity - Tobacco Use Smoking Status: Never smoker Meaningful Use Info Meaningful Use Diagnoses (Choose all that apply): None applicable
[2017-08-26 07:56] VITALS: BP 119/66; PULSE 79; RESP 16; TEMP 36.7; O2SAT 96
--- NOTE | 2017-08-26 08:47 | NURSING ---
Outpatient consult charted on this patient on 08/25/17 by Flavia Montes was documented on the wrong patient. Disregard charting
[2017-08-26 15:00] VITALS: BP 126/69; PULSE 109; RESP 16; TEMP 37; O2SAT 99
[2017-08-26] MEDS: Prenatal Vits Tablet 1 TABLET PO (15:21)
[2017-08-26] MEDS: Ferrous Sulfate 325 MG Tablet PO (15:21)
[2017-08-26] MEDS: Naproxen 250 MG Tablet PO (15:21)
[2017-08-30 10:21] LABS: Pathology Specimen OB SEE PATHOLOGY REPORT
== END 2017-08-26 15:40 | disposition home or self-care (01) | DRG 765 ==
PROVIDERS: Admitting Provider Obstetrics & Gynecology; Family Provider Physician Assistant; PCP Physician Assistant; Visit Provider Obstetrics & Gynecology
PROC: 10D00Z1 Extraction of Products of Conception, Low, Open Approach (ICD-10-PCS; CPT 59514; principal; 2017-08-24 07:15)
DX: O30.043 Twin pregnancy, dichorionic/diamniotic, third trimester (principal); D62 Acute posthemorrhagic anemia; Z37.2 Twins, both liveborn; Z3A.38 38 weeks gestation of pregnancy; O69.81X0 Labor and delivery complicated by cord around neck, without compression, not applicable or unspecified; O99.02 Anemia complicating childbirth
CPT/HCPCS: 85025; 85027; 86850; 86900; 88307; 99218; J7120; A4216; G0378; J2405

== ENCOUNTER → 2020-06-05 15:32 | Outpatient (CLI) | payer OTHER, SELFPAY ==
[2020-06-05 14:28] VITALS: BMI 28.4
[2020-06-05 16:01] LABS: Absolute Lymphocyte Count 2.31 X10^3/uL (0.83-4.51); Absolute Neutrophil Count 11.1 X10^3/uL (2.0-7.7); Basophil# 0.06 X10^3/uL; Basophil% 0.4 % (0-1); Eosinophil# 0.07 X10^3/uL; Eosinophils% 0.5 % (0-5); Hemoglobin 12.5 g/dL (12.0-15.0); Lymphocyte # 2.31 X10^3/ul (4.0); Lymphocyte % 15.9 % (19-41); Mean Corp Hgb Conc 34.7 g/dL (32-36); Mean Corpuscular Hgb 31.5 pg (27.0-32.0); Mean Corpuscular Volume 90.7 fL (81-99); Mean Platelet Vol. 8.7 fl (6.2-12.0); Monocyte# 0.89 X10^3/uL; Monocyte% 6.1 % (0-10); NRBC Flagged by Analyzer 0 % (0-5); Neutrophil # 11.12 X10^3/uL (2.7-7.7); Neutrophil % 76.7 % (47-70); Platelet Count 342 K/mm3 (150-450); RBC Distribution Width CV 13.9 % (11.6-14.6); RBC Distribution Width SD 46.5 fl (35.1-43.9); Red Blood Count 3.97 M/mm3 (4.2-5.4); White Blood Count 14.5 K/mm3 (4.4-11.0)
[2020-06-05 18:04] LABS: Amphetamine Urine VISTA NEGATIVE (<1000 ng/mL); Barbiturate Urine VISTA NEGATIVE (< 200 ng/mL); Benzodiazepine Urine VISTA NEGATIVE (< 200 ng/mL); Cocaine Urine VISTA NEGATIVE (< 300 ng/mL); Ecstacy Urine VISTA NEGATIVE (< 500 ng/mL); Methadone Urine VISTA NEGATIVE (< 300 ng/mL); PCP Urine VISTA NEGATIVE (< 25 ng/mL); THC Urine VISTA NEGATIVE (< 50 ng/mL); Vista UDS pH Range 5
[2020-06-06 09:53] LABS: HIV - WCH Non-Reactive (Nonreactive); Hepatitis B Surface Antigen Non-Reactive (Nonreactive); Hepatitis C Antibody Non-Reactive (Nonreactive); Rubella IgG Reactive (Nonreactive); Syphilis Antibodies Non-reactive
[2020-06-10 03:06] LABS: Chlamydia By Nucleic Acid AMP Negative (Negative)
[2020-06-10 15:06] LABS: Gonococcus By Nucleic Acid AMP Negative (Negative)
[2020-06-11 11:52] LABS: HPV Reflexed? NOT INDICATED
== END ==
PROVIDERS: PCP Physician Assistant; Referring Provider Obstetrics & Gynecology; Visit Provider Obstetrics & Gynecology
DX: Z34.80 Encounter for supervision of other normal pregnancy, unspecified trimester (principal); Z12.4 Encounter for screening for malignant neoplasm of cervix
CPT/HCPCS: 36415; 80307; 85025; 86703; 86762; 86803; 86850; 86900; 86901; 87086; 87088; 87340; 87491; 87591; 88175; G0145

== ENCOUNTER → 2020-10-24 13:51 | Outpatient (CLI) | payer OTHER, SELFPAY ==
[2020-09-26 13:32] VITALS: BMI 29.4
[2020-10-24 14:06] LABS: Absolute Lymphocyte Count 1.94 X10^3/uL (0.83-4.51); Absolute Neutrophil Count 9.1 X10^3/uL (2.0-7.7); Basophil# 0.04 X10^3/uL; Basophil% 0.3 % (0-1); Eosinophil# 0.06 X10^3/uL; Eosinophils% 0.5 % (0-5); Hematocrit 29.7 % (37-47); Hemoglobin 9.5 g/dL (12.0-15.0); Lymphocyte # 1.94 X10^3/ul (0.83-4.51); Lymphocyte % 16.2 % (19-41); Mean Corpuscular Hgb 29.1 pg (27.0-32.0); Mean Corpuscular Volume 91.1 fL (81-99); Mean Platelet Vol. 8.4 fl (6.2-12.0); Monocyte# 0.76 X10^3/uL; Monocyte% 6.3 % (0-10); NRBC Flagged by Analyzer 0 % (0-5); Neutrophil # 9.09 X10^3/uL (2.7-7.7); Neutrophil % 75.9 % (47-70); Platelet Count 282 K/mm3 (150-450); RBC Distribution Width CV 14.1 % (11.6-14.6); RBC Distribution Width SD 46.6 fl (35.1-43.9); Red Blood Count 3.26 M/mm3 (4.2-5.4)
[2020-10-24 14:14] LABS: Glucose Challenge Gest 1H 50g 78 mg/dL (70-140)
== END ==
PROVIDERS: PCP Physician Assistant; Referring Provider Obstetrics & Gynecology; Visit Provider Obstetrics & Gynecology
DX: Z34.92 Encounter for supervision of normal pregnancy, unspecified, second trimester (principal); Z13.1 Encounter for screening for diabetes mellitus
CPT/HCPCS: 36415; 82950; 85025

== ENCOUNTER → 2020-11-21 14:48 | Outpatient (CLI) | payer OTHER, SELFPAY ==
[2020-11-21 16:55] LABS: Absolute Lymphocyte Count 1.72 X10^3/uL (0.83-4.51); Absolute Neutrophil Count 8.6 X10^3/uL (2.0-7.7); Basophil# 0.04 X10^3/uL; Basophil% 0.4 % (0-1); Eosinophil# 0.06 X10^3/uL; Eosinophils% 0.5 % (0-5); Hematocrit 31.1 % (37-47); Hemoglobin 9.9 g/dL (12.0-15.0); Lymphocyte # 1.72 X10^3/ul (0.83-4.51); Lymphocyte % 15.2 % (19-41); Mean Corp Hgb Conc 31.8 g/dL (32-36); Mean Corpuscular Hgb 29.5 pg (27.0-32.0); Mean Corpuscular Volume 92.6 fL (81-99); Mean Platelet Vol. 9.1 fl (6.2-12.0); Monocyte# 0.77 X10^3/uL; Monocyte% 6.8 % (0-10); NRBC Flagged by Analyzer 0 % (0-5); Neutrophil # 8.57 X10^3/uL (2.7-7.7); Neutrophil % 75.9 % (47-70); Platelet Count 298 K/mm3 (150-450); RBC Distribution Width CV 16.5 % (11.6-14.6); RBC Distribution Width SD 54.6 fl (35.1-43.9); Red Blood Count 3.36 M/mm3 (4.2-5.4); White Blood Count 11.3 K/mm3 (4.4-11.0)
== END ==
PROVIDERS: PCP Physician Assistant; Visit Provider Obstetrics & Gynecology
DX: D64.9 Anemia, unspecified (principal)
CPT/HCPCS: 36415; 85025

== ENCOUNTER → 2020-12-10 13:58 | Outpatient (CLI) | payer OTHER, SELFPAY ==
[2020-12-10 14:05] VITALS: BP 120/68; PULSE 99; RESP 16; TEMP 37.1; O2SAT 99; BMI 29.2
[2020-12-10] MEDS: 0.9% NaCl Peripheral Flush Adult/Peds IV (14:09)
[2020-12-10] MEDS: 0.9% NaCl IVPB Med Flush (250 mL) 15 ML IV (14:13)
[2020-12-10 16:29] VITALS: BP 119/67; PULSE 90; RESP 16; TEMP 37.1; O2SAT 98
== END ==
PROVIDERS: PCP Physician Assistant; Referring Provider Obstetrics & Gynecology; Visit Provider Obstetrics & Gynecology
DX: D64.9 Anemia, unspecified (principal)
CPT/HCPCS: 96365; 96366; J1756; J7050; A4216

== ENCOUNTER → 2020-12-17 13:59 | Outpatient (CLI) | payer OTHER, SELFPAY ==
[2020-12-17] MEDS: 0.9% NaCl IVPB Med Flush (250 mL) 15 ML IV (14:16)
[2020-12-17] MEDS: 0.9% NaCl Peripheral Flush Adult/Peds IV (14:16)
[2020-12-17 14:24] VITALS: BP 110/60; PULSE 88; RESP 16; O2SAT 98
[2020-12-17 16:00] VITALS: BP 108/53; PULSE 84; RESP 16
== END ==
PROVIDERS: PCP Physician Assistant; Referring Provider Obstetrics & Gynecology; Visit Provider Obstetrics & Gynecology
DX: D64.9 Anemia, unspecified (principal)
CPT/HCPCS: 96365; 96366; J1756; J7050; A4216

== ENCOUNTER → 2020-12-19 | Outpatient (CLI) | payer OTHER, SELFPAY | END | disposition home or self-care (01) | LOC: LABSPEC 17:15 | PROVIDERS: PCP Physician Assistant; Referring Provider Obstetrics & Gynecology; Visit Provider Obstetrics & Gynecology | DX: Z34.80 Encounter for supervision of other normal pregnancy, unspecified trimester (principal) | CPT/HCPCS: 87081 ==

== ENCOUNTER → 2020-12-24 13:38 | Outpatient (CLI) | payer OTHER, SELFPAY ==
[2020-12-24 13:43] VITALS: BP 132/70; PULSE 94; RESP 16; TEMP 37; O2SAT 98; BMI 30.4
[2020-12-24] MEDS: 0.9% NaCl Peripheral Flush Adult/Peds IV (13:52)
[2020-12-24] MEDS: 0.9% NaCl IVPB Med Flush (250 mL) 15 ML IV (13:52)
[2020-12-24 15:44] VITALS: BP 134/72; PULSE 88; TEMP 37.1
== END ==
PROVIDERS: PCP Physician Assistant; Referring Provider Obstetrics & Gynecology; Visit Provider Obstetrics & Gynecology
DX: D64.9 Anemia, unspecified (principal)
CPT/HCPCS: 96365; 96366; J1756; J7050; A4216

== ENCOUNTER → 2021-01-02 | Outpatient (CLI) | payer OTHER, SELFPAY | END | disposition home or self-care (01) | LOC: LABSPEC 11:29 | PROVIDERS: PCP Physician Assistant; Referring Provider Obstetrics & Gynecology; Visit Provider Obstetrics & Gynecology | DX: Z34.80 Encounter for supervision of other normal pregnancy, unspecified trimester (principal) | CPT/HCPCS: 87635; U0005; U0003 ==

== ENCOUNTER 2021-01-08 09:35 | Inpatient (IN) | payer OTHER, SELFPAY ==
[2020-10-24 14:17] VITALS: BMI 29.4
[2021-01-08] VITALS (16 sets, daily range): BP systolic 96–122; BP diastolic 46–86; PULSE 61–107; RESP 13–20; TEMP 35.7–37.1; O2SAT 97–100; BMI 30.2
[2021-01-08] MEDS: Lactated Ringers 1,000 ML 999 ML IV (10:15)
[2021-01-08 10:41] LABS: Absolute Lymphocyte Count 1.69 X10^3/uL (0.83-4.51); Absolute Neutrophil Count 8.2 X10^3/uL (2.0-7.7); Basophil# 0.03 X10^3/uL; Basophil% 0.3 % (0-1); Eosinophil# 0.04 X10^3/uL; Eosinophils% 0.4 % (0-5); Hematocrit 35.6 % (37-47); Hemoglobin 11.7 g/dL (12.0-15.0); Lymphocyte # 1.69 X10^3/ul (0.83-4.51); Lymphocyte % 15.9 % (19-41); Mean Corp Hgb Conc 32.9 g/dL (32-36); Mean Corpuscular Hgb 30.3 pg (27.0-32.0); Mean Corpuscular Volume 92.2 fL (81-99); Mean Platelet Vol. 9.5 fl (6.2-12.0); Monocyte# 0.55 X10^3/uL; Monocyte% 5.2 % (0-10); NRBC Flagged by Analyzer 0 % (0-5); Neutrophil # 8.24 X10^3/uL (2.7-7.7); Neutrophil % 77.6 % (47-70); POSITIVE MORPHOLOGY YES; Platelet Count 247 K/mm3 (150-450); RBC Distribution Width CV 19.9 % (11.6-14.6); Red Blood Count 3.86 M/mm3 (4.2-5.4); White Blood Count 10.6 K/mm3 (4.4-11.0)
[2021-01-08 10:43] LABS: Differential Indicated SCAN CRITERIA MET
[2021-01-08] MEDS: Acetaminophen 500 MG Tablet 1000 MG PO ×2 (11:00→18:09)
[2021-01-08 11:04] LABS: Anisocytosis 1+
[2021-01-08] MEDS: Lactated Ringers 1,000 ML 150 ML IV (11:20)
[2021-01-08] MEDS: Sodium Citrate/Citric Acid 30 ML UDC PO (11:45)
[2021-01-08] MEDS: Cefazolin 2 GM in 0.9% Normal Saline 100 ML IV (12:05)
--- NOTE | 2021-01-08 13:02 | HP.PCM.OB_ITS ---
HPI - General General Date of Admission: 01/08/21 HPI Narrative KANDI DIAZ, is a 25 F who presents for RLTCS and BS Maternal Data Information DEANDRE Calculator Estimated Delivery Date Method Current WG Current Estimate 01/14/21 LMP (Certain) 39w 1d Other Estimates 01/11/21 Ultrasound #1 39w 4d PFSH PFSH Medical History Anemia H/O twin in prior Placental abnormality Home Medications multivitamin no.47-iron fum 27 mg-folate no.1 1 mg-dha 300 mg capsule cap PO 05/27/20 [History Last Taken 01/07/21] Allergy/AdvReac Type Severity Reaction Status Date / Time No Known Allergies Allergy Verified 01/08/21 11:20 Family History Grandmother Hypertension Thyroid disorder Grandmother Diabetes Surgical History H/O section Social History adopted: No household members: family housing: house number of children: 2 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 Date Name GA/Weeks Outcome Route Bth Weight Gen Labor Lgth Anesthesia Del Locatn Provider FOB 08/24/17 Vayden 38 live - full term 7lbs 4oz Male spinal WC EB Simone 08/24/17 Cespedes 38 live - full term 7lbs 3oz Male spinal WC EB Simone Delivery Date: 08/24/17 No complications- twin Elham Nash Delivery Date: 08/24/17 No complications- Twin Elham Nash Visit Details Expected Delivery Route/Plan RLTCS Labor Preferences- labor support person: [] labor intervention preferences: [] pain management options preferred: [] cut cord/dad catch: [] : [] PP control planned: [] discussed possible routes of delivery and associated risks: [] special requests: [] Plans flu vaccine: tdap vaccine: declined rhogam: na LARC form signed: [] movement and labor precautions reviewed. Problem list reviewed and updated with the most current plan of care details and appropriate orders placed. Relevant counseling for the gestational age provided. Continue routine care and follow up unless otherwise noted in visit notes/problem list details OB Flowsheet Initial Weight: Not Recorded Date -?-?-?-?-?-?-?-?-?-?-?-?- EGA Weight BP Urine Prot -?-?-?-?-?-?-?-?-?-?-?-?- Glucose FHR FuHt Pres Dilation -?-?-?-?-?-?-?-?-?-?-?-?- Effaced St Visit Note 06/05/20 -?-?-?-?-?-?-?-?-?-?-?-?- 8w 1d 155 lb 8 oz 130/90 -?-?-?-?-?-?-?-?-?-?-?-?- 171 -?-?-?-?-?-?-?-?-?-?-?-?- GP - CRL 17mm co nsistent with LMP. Mobile lump on breast exam at 2 o'clock 06/30/20 -?-?-?-?-?-?-?-?-?-?-?-?- 11w 5d 155 lb 136/72 Negative -?-?-?-?-?-?-?-?-?-?-?-?- Negative 160 -?-?-?-?-?-?-?-?-?-?-?-?- GP - no crampin g or bleeding. PRR. Anatomy scan ordered. 08/01/20 -?-?-?-?-?-?-?-?-?-?-?-?- 16w 2d 153 lb 126/64 Negative -?-?-?-?-?-?-?-?-?-?-?-?- Negative 145 -?-?-?-?-?-?-?-?-?-?-?-?- GP - no cramping or bleeding. Anatomy martin 08/28. Denies complaints 08/28/20 -?-?-?-?-?-?-?-?-?-?-?-?- 20w 1d 156 lb 4 oz 122/70 Nega tive -?-?-?-?-?-?-?-?-?-?-?-?- Negative 140 -?-?-?-?-?-?-?-?-?-?-?-?- GP - no LOF, VB, DFM, ctx. Anatomy today. Did sneak peak - having a girl 09/26/20 -?-?-?-?-?-?-?-?-?-?-?-?- 24w 2d 161 lb 134/74 Negative -?-?-?-?-?-?-?-?-?-?-?-?- Negative 145 24 -?-?-?-?-?-?-?-?-?-?-?-?- SM- no vb lof go od fm no regular ctx. considering . 10/24/20 -?-?-?-?-?-?-?-?-?-?-?-?- 28w 2d 163 lb 122/70 Negative -?-?-?-?-?-?-?-?-?-?-?-?- Negative 145 28 -?-?-?-?--?-?-?-?-?-?-?-?- SM- no vb lof go od fm no regular ctx. tahira discussion does not want unless IAL. schedule cs at 39 11/06/20 -?-?-?-?-?-?-?-?-?-?-?-?- 30w 1d 167 lb 136/70 Negative -?-?-?-?-?-?-?-?-?-?-?-?- Negative 140 30 -?-?-?-?-?-?-?-?-?-?-?-?- SM- no vb lof go od fm nor egular ctx 11/21/20 -?-?-?-?-?-?-?-?-?-?-?-?- 32w 2d 169 lb 128/80 Negative -?-?-?-?-?-?-?-?-?-?-?-?- Negative 135 32 Cephalic -?-?-?-?-?-?-?-?-?-?-?-?- GP - no LOF, VB, dFM, ctx. Repeat CBC today to recheck anemia. 12/05/20 -?-?-?-?-?-?-?-?-?-?-?-?- 34w 2d 110/80 Negative -?-?-?-?-?-?-?-?-?-?-?-?- Negative 140 34 Cephalic -?-?-?-?-?-?-?-?-?-?-?-?- GP - no LOF, VB, DFM, ctx. Denies complaints. 12/19/20 -?-?-?-?-?-?-?-?-?-?-?-?- 36w 2d 172 lb 120/62 Negative -?-?-?-?-?-?-?-?-?-?-?-?- Negative 130 37 Cephalic 0 -?-?-?-?-?-?-?-?-?-?-?-?- SM- no vb lof go od fm no regular ctx 12/24/20 -?-?-?-?-?-?-?-?-?-?-?-?- 37w 0d 174 lb 128/80 Negative -?-?-?-?-?-?-?-?-?-?-?-?- Negative 130 37 Cephalic -?-?-?-?-?-?-?-?-?-?-?-?- GP - no LOF, VB, DFM, ctx. Denies complaints. 01/02/21 -?-?-?-?-?-?-?-?-?-?-?-?- 38w 2d 174 lb 8 oz 130/84 Trac e -?-?-?-?-?-?-?-?-?-?-?-?- Negative 150 38 Cephalic -?-?-?-?-?-?-?-?-?-?-?-?- GP - no LOF, VB, DFM, ctx. RLTCS next week. COVID testing done today. 01/08/21 -?-?-?-?-?-?-?-?-?-?-?-?- 39w 1d 171 lb 122/77 -?-?-?-?-?-?-?-?-?-?-?-?- -?-?-?-?-?-?-?-?-?-?-?-?- NST FHR Rate Baby A Baseline: 130 ROS Constitutional Constitutional: Reports systems reviewed and no addt'l complaints, except as documented Eyes Eyes: Denies change in vision ENT HEENT: Reports systems reviewed and no addt'l complaints, except as documented; Denies headache(s) Cardiovascular Cardiovascular: Reports systems reviewed and no addt'l complaints, except as documented; Denies chest pain or dyspnea Respiratory/Chest Respiratory/Chest: Reports systems reviewed and no addt'l complaints, except as documented Gastrointestinal Gastrointestinal: Reports systems reviewed and no addt'l complaints, except as documented; Denies abdominal pain Genitourinary Genitourinary: Reports systems reviewed and no addt'l complaints, except as documented, contractions Details: present (irregular) and movement Details: present; Denies dysuria or genital lesions Musculoskeletal Musculoskeletal: Reports systems reviewed and no addt'l complaints, except as documented Neurologic Neurologic: Reports systems reviewed and no addt'l complaints, except as documented Endocrine Endocrinology: Reports systems reviewed and no addt'l complaints, except as documented Vital Signs Vital Signs Vital Signs: 01/08/21 11:18 Temperature 97.8 F Temperature Source Temporal Pulse Rate 107 H Respiratory Rate 20 H Blood Pressure 122/77 H Blood Pressure Mean 92 Blood Pressure Source Monitor Blood Pressure Position Semi-Fowlers Blood Pressure Location Left Arm Pulse Ox 99 Oxygen Delivery Method Room Air Weight Weight: 171 lb Body Mass Index (BMI) 30.2 Physical Exam Const alert, oriented x3, no apparent distress and healthy appearing HEENT normocephalic and moist oral mucous membranes Head and Scalp: atraumatic Neck full ROM, no lymphadenopathy, supple and thyroid normal General: trachea midline Lymph Lymphatic: no lymphadenopathy noted Chest inspection of chest normal Resp normal respiratory effort Cardio regular rate GI normal to inspection, nondistended, normoactive bowel sounds, soft to palpation and non-tender Inspection: gravid external exam normal Manual OB Exam: estimated gestational size appropriate, presentation cephalic, dilated, effaced and station Extremity normal to inspection General Extremity: Negative for edema Skin no rashes or lesions noted Neuro no focal motor deficits and deep tendon reflexes 2+ bilaterally Motor Exam: strength 5/5 throughout and clonus absent Psych mental status grossly normal Labs Labs Labs: Blood Type A POSITIVE Antibody Screen NEGATIVE Hct 35.6 % (37-47) L Hgb 11.7 g/dL (12.0-15.0) L Syphilis Total Ab Non-reactive Rubella IgG Antibody Reactive (Nonreactive) Hep Bs Antigen Non-Reactive (Nonreactive) Neisseria gonorrhoeae DNA (CRYS) Negative (Negative) HIV 1&2 Antibody Non-Reactive (Nonreactive) C.trachomatis DNA (PCR) Negative (Negative) Glucose 1 Hr 50 gm 78 mg/dL (70-140) Group B Strep DNA Negative (Negative) Rhogam given: No Assessment & Plan (1) Anemia: COMMENT: repeat CBC 4 wks, IV venofer (2) Breast lump in female: COMMENT: ~2cm mobile lump in left breast at 2 o'clock - Patient declined US follow-up (3) Supervision of other normal : COMMENT: PRR DEANDRE: 01/14/21 girl Kate PC: Coy Denise- twins Spouse: Simone (4) H/O twin in prior : COMMENT: Di-Di (5) H/O section: COMMENT: 2018 for twins. Likely planning RLTCS. scheduled for 01/08 (6) : QUALIFIERS: Weeks of gestation: 38 weeks Qualified Code(s): Z 3A.38 - 38 weeks gestation of COMMENT: GBS negative, declines genetic and carrier, anatomy nl, f/u growth us 10/03 nl PLAN: plan RLTCS and BS for sterilization
--- NOTE | 2021-01-08 13:03 | OP.PCM_ITS ---
Assessment & Plan (1) Anemia: COMMENT: repeat CBC 4 wks, IV venofer (2) Breast lump in female: COMMENT: ~2cm mobile lump in left breast at 2 o'clock - Patient declined US follow-up (3) Supervision of other normal : COMMENT: PRR DEANDRE: 01/14/21 danyelle Love PC: Coy Denise- twins Spouse: Simone (4) H/O twin in prior : COMMENT: Di-Di (5) H/O section: COMMENT: 2018 for twins. Likely planning RLTCS. scheduled for 01/08 (6) : QUALIFIERS: Weeks of gestation: 38 weeks Qualified Code(s): Z3A.38 - 38 weeks gestation of COMMENT: GBS negative, declines genetic and carrier, anatomy nl, f/u growth us 10/03 nl Maternal Data Information DEANDRE Calculator Estimated Delivery Date Method Current WG Current Estimate 01/14/21 LMP (Certain) 39w 1d Other Estimates 01/11/21 Ultrasound #1 39w 4d Final DEANDRE Source: LMP Details Operative Information Pre-Operative Diagnosis: Previous Post-Operative Diagnosis: same Indications for : Repeat Elective Classification: Scheduled Type of Anesthesia: Spinal Special Medications: none Antibiotic Given: Ancef 2 grams IV x1 Drain: Le to straight drain Estimated Blood Loss: 800 Fluids Replaced: crystalloid Findings Description of Procedure: Spinal anesthesia was placed without difficulty. Le catheter was placed. The patient was placed in the dorsal supine position with leftward tilt. Patient was prepped and draped in the normal sterile fashion. Pfannenstiel skin incision was made with the scalpel and carried through to the underlying layer of fascia with the scalpel. Fascia was nicked in the midline and the incision extended laterally. The rectus bellies were dissected off superiorly and inferiorly with out complication both sharply and bluntly. The peritoneum was entered digitally. The incision was stretched and a low transverse uterine incision was made with the scalpel. The 's head was delivered atraumatically followed by the anterior and posterior shoulders without complication the rest of the delivered. The cord was clamped and cut and the infant was handed off to awaiting nurse. The placenta was delivered spontaneously immediately following and was noted to be intact and have a three- vessel cord. The uterus was exteriorized cleared of all clots and debris, and the incision was closed in a single layer closure using #1 Monocryl. The ovaries and fallopian tubes were noted to be within normal limits. Patient had desired sterilization and was counseled preoperatively regarding irreversibility and permanency. Therefore bilateral fallopian tubes were elevated and transected across using a LigaSure device starting proximally to distally without complication the entire fallopian tubes were removed. The uterus was returned to the maternal abdomen and gutters were cleared of all clots and debris. The peritoneum was closed with 3-0 Monocryl in a running fashion. Gloves were changed prior to fascial closure. Fascia was closed with 0 PDS in a running fashion. Subcutaneous tissue was copiously irrigated and the skin was closed with 3-0 Monocryl in a subcuticular fashion. Mepilex dressing was applied without complication. Patient was taken to recovery in stable condition. Amniotic Membrane Rupture Type: Artificial Amniotic Fluid Description: Clear Placenta Disposition: [facility] Cord Vessel Description: 3 Vessels Cord Entanglement: None Delayed Cord Clamping: Yes Complications Risks of Surgery Discussed w/Patient: Bleeding, Infection, Need for Future C- Sections and Injury to surrounding structure(s) including bowel and bladder Vaginal Delivery Complication Complications: None Admit VTE Documentation VTE Present on Admission: No VTE Mechan Device Prophylaxis: SCD's Procedures Urinary/Genital 52xxx-59xxx: [id number] Delivery [facility]
[2021-01-08] MEDS: Oxytocin 30 units/NS 500 ml 30 UNITS/500 ML IV.SOLN 167 UNITS IV (13:05)
--- NOTE | 2021-01-08 13:46 | FALS_PTH ---
PATIENT: KANDI DIAZ LOC: [facility] U#:[id number] AGE/SX: 25/F ROOM: WP007 RE01/08/[address]: Dr. Corrine Keith MD : 1995 BED: 1 DIS: 01/09/2021 SPEC #: [id number] RECD: 01/08/21 13:53 STATUS: ANANTH YANET #: [id number] FABIAN: 01/08/21 13:[address]: Corrine Keith DEPT: SURGICAL PATHOLOGY RECD BY: Bren Main ENTERED: 01/09/21 08:45 SP TYPE: FALL TUBES OTHR DR: JENNIFER Goldsmith Tissues: Fallopian tube Procedures: Surgery Specimen Level II HEADER OPERATION: Tubal ligation PRE-OP DIAGNOSIS: Sterilization TISSUE SUBMITTED: Fallopian tubes MICROSCOPIC DIAGNOSIS Right and left fallopian tubes, bilateral salpingectomies: Complete segments of right and left fallopian tubes. Benign paratubal cyst. AM:shabnam 01/12/2021 MICROSCOPIC DESCRIPTION Slides are reviewed. GROSS DESCRIPTION Received in fixative is one container labeled with the patient's name and designated bilateral fallopian tubes, suture right. The specimen consists of bilateral fallopian tubes including fimbrial ends. The fallopian tubes do not show any suture. One fallopian tube measures 7 cm in length and 1 cm in diameter and the second fallopian tube measures 6 cm in length and up to 1 cm in diameter. The fallopian tubes are not identified as right or left. Sections reveal unremarkable cut surfaces. Sheet Sorter sections are submitted in two cassettes with each cassette containing one fallopian tube. / AJAY:shabnam 01/09/21 TC:5 CPT: 37740 x2
[2021-01-08] MEDS: Ketorolac 30 MG/ML Syringe IV ×2 (14:25→20:15)
[2021-01-08] MEDS: 0.9% Saline Lock 10 ML Syringe IV ×2 (14:25→20:15)
[2021-01-09 00:20] VITALS: BP 92/51; PULSE 67; RESP 16; TEMP 36.6; O2SAT 100
[2021-01-09] MEDS: Acetaminophen 500 MG Tablet 1000 MG PO ×3 (00:21→12:47)
[2021-01-09] MEDS: Ketorolac 30 MG/ML Syringe IV ×2 (02:13→07:57)
[2021-01-09] MEDS: 0.9% Saline Lock 10 ML Syringe IV ×2 (02:14→07:58)
[2021-01-09 04:25] VITALS: BP 114/72; PULSE 68; RESP 16; TEMP 36.6; O2SAT 99
[2021-01-09 05:45] LABS: Hematocrit 30.4 % (37-47); Hemoglobin 9.8 g/dL (12.0-15.0); Mean Corp Hgb Conc 32.2 g/dL (32-36); Mean Corpuscular Hgb 30.7 pg (27.0-32.0); Mean Corpuscular Volume 95.3 fL (81-99); Mean Platelet Vol. 8.9 fl (6.2-12.0); POSITIVE MORPHOLOGY YES; Platelet Count 182 K/mm3 (150-450); RBC Distribution Width CV 19.9 % (11.6-14.6); RBC Distribution Width SD 69.3 fl (35.1-43.9); Red Blood Count 3.19 M/mm3 (4.2-5.4); White Blood Count 12.4 K/mm3 (4.4-11.0)
[2021-01-09 06:01] LABS: Scan Indicated on CBC? Y/N YES- FLAGS NOTED
[2021-01-09] MEDS: Senna/Docusate Sodium 1 Tablet PO (07:57)
[2021-01-09 08:00] VITALS: BP 101/48; PULSE 66; RESP 18; TEMP 36.7; O2SAT 98
--- NOTE | 2021-01-09 08:46 | PCM.PN.OB ---
Subjective Subjective Patient doing well without complaints. Tolerating PO. Ambulating and voiding without difficulty. feeding well. Denies chest pain, shortness of breath, calf pain/swelling, fevers, chills, lightheadedness. Objective Data Objective Data Vital Signs: Vital Signs Temp Pulse Resp BP Pulse Ox 98.1 F 66 18 101/48 L 98 01/09/21 08:00 01/09/21 08:00 01/09/21 08:00 01/09/21 08:00 01/09/21 08:00 Oxygen Delivery Method Room Air Weight: 171 lb Body Mass Index (BMI) 30.2 Intake & Output: Intake and Output for Last 24 Hours 01/07/21 01/08/21 01/09/21 23:59 23:59 23:59 Intake Total 4800 / 4800 Output Total 3271 / 3271 550 / 550 Balance 1529 / 1529 -550 / -550 Lab / Micro Data Result Diagrams: 01/09/21 05:30 Labs: Laboratory Results - last 24 hr 01/08/21 10:15: WBC 10.6, RBC 3.86 L, Hgb 11.7 L, Hct 35.6 L, MCV 92.2, MCH 30.3, MCHC 32.9, RDW Std Deviation 67.0 H, RDW Coeff of Eddy 19.9 H, Plt Count 247, MPV 9.5, Immature Gran % (Auto) 0.600, Neut % (Auto) 77.6 H, Lymph % (Auto) 15.9 L, [place] % (Auto) 5.2, Eos % (Auto) 0.4, Baso % (Auto) 0.3, Absolute Neuts (auto) 8.2 H, Absolute Lymphs (auto) 1.69, Nucleated RBC % 0, Anisocytosis 1+ 01/08/21 10:15: Blood Type A POSITIVE, Antibody Screen NEGATIVE 01/09/21 05:30: WBC 12.4 H, RBC 3.19 L, Hgb 9.8 L, Hct 30.4 L, MCV 95.3, MCH 30.7, MCHC 32.2, RDW Std Deviation 69.3 H, RDW Coeff of Eddy 19.9 H, Plt Count 182, MPV 8.9 ROS Constitutional Constitutional: Reports systems reviewed and no addt'l complaints, except as documented Cardiovascular Cardiovascular: Reports systems reviewed and no addt'l complaints, except as documented Respiratory/Chest Respiratory/Chest: Reports systems reviewed and no addt'l complaints, except as documented Gastrointestinal Gastrointestinal: Reports systems reviewed and no addt'l complaints, except as documented Physical Exam Const alert, oriented x3 and no apparent distress HEENT Head and Scalp: atraumatic Resp normal respiratory effort GI soft to palpation and non-tender Inspection: incision intact, healing well and drainage (none) Bimanual Exam - Vag & Uterus: uterus non-tender Uterus Palpation: uterus fundus firm (below Umbilicus) Assessment & Plan (1) Sterilization: COMMENT: BS at time of CS (2) delivery delivered: COMMENT: RLTCS 39 SM girl [place] and BS PLAN: s/p LTCS PPD # 1 1. routine post care 2. breast feeding- support given 3. rh positive 4. rubella immune
--- NOTE | 2021-01-09 08:46 | PCM.DC ---
Discharge Instructions Diet Discharge Diet: No restrictions Activity Discharge Activity: May Not Drive (for 2 weeks or while taking narcotic pain medications.), May Shower and May Take a Tub Bath (in 7 days) May shower in (days): 0 May resume sexual activity in: 4-6 weeks Weight Bearing Status: Full weight bearing Lifting Restrictions: 20 pounds Dressing / Incision Call your doctor if your incision/area has: Continuous Slow Oozing, Sudden Increased Bleeding, Increased Pain/ Swelling, Increased Redness and Foul Smelling Discharge Call your doctor if you observe: Fever of 101 or Higher and Using more than 1 pad per hour (for 2 hours) Suture Line Care: Avoid Pulling/Pushing and Avoid Pinching/Bending Cleanse incision/area with: Soap & Water and Keep Dressing Clean & Dry Follow Up Care Please Follow Up With: Corrine Keith MD When: Call [phone] to make an appointment for an incision check in 1-2 weeks. Test Results: Test results from this visit will be discussed in further detail at your follow-up appointment, if applicable. Discharge Plan Admission Admit Date/Time: 01/08/21 09:35 Primary Reason for Your Visit: section and sterilization Attending Provider: Corrine Keith Primary Care Provider: Pricila Blackwood Discharge Orders/Prescriptions Prescriptions: New oxycodone-acetaminophen [Percocet] 5-325 mg tablet 1 tab PO Q6H PRN (Reason: pain) 7 Days Qty: 20 RF: 0 naproxen [naproxen] 500 MG tablet 500 mg PO BID PRN PRN (Reason: Pain) Qty: 30 RF: 1 Continued PNV-DHA 27 mg iron-1 mg -300 mg capsule PO RF: 0 Referrals / Follow Up: Pricila Blackwood PA [Primary Care Provider] - Disposition Disposition (needs filled in before D/C Order can be placed): Home, Self Care
[2021-01-09 15:32] VITALS: BP 105/60; PULSE 79; RESP 18; TEMP 36.7
[2021-01-09] MEDS: Naproxen 500 MG Tablet PO (15:59)
[2021-01-12 15:40] LABS: Pathology Specimen OB SEE PATHOLOGY REPORT
--- NOTE | 2021-01-13 12:29 | NURSING ---
Malathi was super kind and caring. We really liked her. It was a great experience.
== END 2021-01-09 16:00 | disposition home or self-care (01) | DRG 785 ==
PROVIDERS: Admitting Provider Obstetrics & Gynecology; PCP Physician Assistant; Referring Provider Obstetrics & Gynecology; Visit Provider Obstetrics & Gynecology
PROC: 10D00Z1 Extraction of Products of Conception, Low, Open Approach (ICD-10-PCS; CPT 59514; principal; 2021-01-08 11:45)
DX: O34.219 Maternal care for unspecified type scar from previous cesarean delivery (principal); Z30.2 Encounter for sterilization; Z3A.38 38 weeks gestation of pregnancy; Z37.0 Single live birth
CPT/HCPCS: 85025; 85027; 86850; 86900; 86901; 88302; 99218; J7120; A4216; G0378; J2405